=== PATIENT | female | born 1990 ===

== ENCOUNTER → 2021-01-17 09:54 | Outpatient (CLI) | payer OTHER, MEDICAID, SELFPAY ==
[2021-01-17 21:25] LABS: COVID19 - ORCAS (NP or Nasal) Negative (Negative)
== END ==
PROVIDERS: PCP Physician Assistant Medical; Visit Provider Physician Assistant Medical
DX: Z20.822 Contact with and (suspected) exposure to COVID-19 (principal)
CPT/HCPCS: U0003

== ENCOUNTER → 2021-03-12 07:43 | Outpatient (CLI) | payer OTHER, MEDICAID, SELFPAY ==
[2021-03-12 20:55] LABS: COVID19 - ORCAS (NP or Nasal) POSITIVE (Negative)
== END ==
PROVIDERS: PCP Physician Assistant Medical; Visit Provider Physician Assistant
DX: U07.1 COVID-19 (principal); Z20.822 Contact with and (suspected) exposure to COVID-19
CPT/HCPCS: U0003